=== PATIENT | male | born 1970 | race Two or more races ===

== ENCOUNTER 2020-04-30 23:52 | Emergency (ER) | payer SELFPAY ==
[~2020-04-30] VITALS: Ht 167.6 cm; Wt 77.1 kg
[2020-05-01] MEDS ORDERED: Tetanus/Diptheria/Pertussis IM ONE
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
[2020-05-01] MEDS ORDERED: Lidocaine 1% 10mg/ml/EPI 0.01mg/ml 30ml INJ ONE ×2 (00:59→01:00)
[2020-05-01 01:00] VITALS: BP 148/79
[2020-05-01] MEDS ORDERED: IBUPROFEN600 M1 ORAL (01:16)
--- NOTE | 2020-05-01 01:20 | Diagnostic Imaging Report ---
EXAM: CT Head Without Intravenous Contrast CLINICAL HISTORY: INJ TECHNIQUE: Axial computed tomography images of the head/brain without intravenous contrast. CTDI is 53.40 mGy and DLP is 1125.70 mGy-cm. One or more of the following dose reduction techniques were used: automated exposure control, adjustment of the mA and/or kV according to patient size, use of iterative reconstruction technique. COMPARISON: No relevant prior studies available. FINDINGS: Brain: No hemorrhage or mass effect. Ventricles: No hydrocephalus. Bones/joints: Unremarkable. Soft tissues: Unremarkable. Sinuses: Unremarkable. Mastoid air cells: Clear. IMPRESSION: No acute hemorrhage, hydrocephalus, or mass effect.
[2020-05-01] MEDS ORDERED: BACITRACIN ZIN1 EACH TOPIC (01:41)
[2020-05-01 02:21] VITALS: BP 142/89
== END 2020-05-01 02:21 | disposition home or self-care (01) ==
LOC: EDBD 23:52 → EMR 23:59
DX: S01.81XA Laceration without foreign body of other part of head, initial encounter (principal); S01.01XA Laceration without foreign body of scalp, initial encounter; S06.9X9A Unspecified intracranial injury with loss of consciousness of unspecified duration, initial encounter; Y08.89XA Assault by other specified means, initial encounter; Y92.9 Unspecified place or not applicable; R51 Headache; Z23 Encounter for immunization
CPT/HCPCS: 70450; 90471; 90715; 99284

== ENCOUNTER 2020-05-05 13:57 | Emergency (ER) | payer SELFPAY ==
[~2020-05-05] VITALS: Ht 170.2 cm; Wt 72.6 kg
[~2020-05-05 13:57] MED LIST: BACITRACIN ZIN1 EACH TOPIC; IBUPROFEN600 M1 ORAL
--- NOTE | 2020-05-05 14:37 | Emergency Room Report ---
History of Present Illness General Chief Complaint: Wound Recheck/Suture Removal Source: Patient Present Illness HPI 49-year-old male with no known significant past medical history here requesting suture removal. Patient sutures placed in forehead 4 days ago and charbel placed and around same time in the right side of scalp. Complains of minor headache when bending head down and is requesting more time off from work. Denies any fever and chills, pus drainage. Sutures are not ready to be taken out yet as the wound still healing. Patient is up-to-date with tetanus shot. 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 Patient History Past Medical History: see triage record Past Surgical History: none Pertinent Family History: none Reviewed Nursing Documentation: PMH: Agreed; PSxH: Agreed Nursing Documentation-PMH Past Medical History: No Stated History Review of Systems All Other Systems: negative except mentioned in HPI Physical Exam Vital Signs Date Time Temp Pulse Resp B/P (MAP) Pulse Ox O2 Delivery O2 Flow Rate FiO2 05/05/20 14:24 97.9 74 17 127/83 (98) 99 Room Air Sp02 EP Interpretation: reviewed, normal General Appearance: well appearing, no apparent distress Head: normocephalic, atraumatic Eyes: bilateral eye normal inspection ENT: hearing grossly normal, normal voice Neck: full range of motion, supple Respiratory: lungs clear Cardiovascular #1: normal inspection Gastrointestinal: normal inspection Musculoskeletal: gait/station normal Neurologic: alert, normal gait Psychiatric: mood/affect normal Skin: other - Healing lack with sutures in place no pus drainage on 4 with stable right scalp Lymphatic: no adenopathy Procedures Additional Procedure Procedure Narrative 2 charbel removed from right frontal lobe without any complication Medical Decision Making PA Attestation ALL Diagnosis and treatment plan reviewed and discussed with my supervising physician Dr. Mason Diagnostic Impression: Primary Impression: Suture check Additional Impression: Removal of staple ER Course 49-year-old male with no known significant past medical history here requesting suture removal. Patient sutures placed in forehead 4 days ago and charbel dionicio blanca and around same time in the right side of scalp. Complains of minor headache when bending head down and is requesting more time off from work. Denies any fever and chills, pus drainage. Sutures are not ready to be taken out yet as the wound still healing. Patient is up-to-date with tetanus shot. Ddx considered but are not limited to : Superficial laceration, deep laceration, tendon involvement with laceration, laceration with foreign body Vital signs: are WNL, pt. is afebrile H&PE are most consistent with: Removal of charbel, suture check ORDERS: Mupirocin ointment ED INTERVENTIONS: 2 charbel removed from scalp without complication. Sutures were left in forehead as it is too simple to be taken off patient to return in 3 to 4 days. DISCHARGE: At this time pt. is stable for d/c to home. Will provide printed patient care instructions, and any necessary prescriptions. Care plan and follow up instructions have been discussed with the patient prior to discharge. Last Vital Signs Date Time Temp Pulse Resp B/P (MAP) Pulse Ox O2 Delivery O2 Flow Rate FiO2 05/05/20 14:24 97.9 74 17 127/83 (98) 99 Room Air Disposition: HOME, SELF-CARE Condition: Stable Scripts Mupirocin* (MUPIROCIN*) 22 Gm Oint...g. 1 APPLIC TOPIC THREE TIMES A DAY, #22 GM Prov: Carla Edwards 05/05/20 Patient Instructions: Wound Check Additional Instructions: Sutures are not ready to be coming out yet as you got them placed in 4 days ago return to the emergency room 3 to 4 days for removal of the sutures in your forehead. Charbel on your scalp were removed successfully without any complications. If worsening symptoms return to the emergency room Carla Edwards May 05, 2020 14:37
[2020-05-05] MEDS ORDERED: MUPIROCIN22 GM TOPIC (14:40)
--- NOTE | 2020-05-05 14:50 | NUR ---
ED Nurse Note:sutures were removed by ER PA Pt cleared by health care Provider for discharge. DC instructions/prescription was given and explained to pt and verbalized understanding of teachings. All medical deviecs such as ID band removed. Pt is AAO x4, ambulatory and left with all personal belongings.
[2020-05-05 19:42] VITALS: BP 127/83
== END 2020-05-05 14:50 | disposition home or self-care (01) ==
LOC: EMR 14:35
DX: Z48.02 Encounter for removal of sutures (principal); R51 Headache
CPT/HCPCS: 99281

== ENCOUNTER → 2020-05-09 | Emergency (ER) | payer SELFPAY ==
[~2020-05-09] VITALS: Ht 172.7 cm; Wt 70.3 kg
[~2020-05-09] MED LIST changes: +MUPIROCIN22 GM TOPIC
[2020-05-09 15:27] VITALS: BP 126/82
--- NOTE | 2020-05-09 15:43 | Emergency Room Report ---
History of Present Illness General Chief Complaint: Wound Recheck/Suture Removal Source: Patient Present Illness HPI 49-year-old male with no symptom past medical history here requesting suture removal from forehead which were placed in [facility] about 10 days ago. 2 of the sutures have already been fallen off and patient currently had 4 sutures placed in. Laceration has been healed without any pus drainage. Denies any new injury. Denies any fever and chills, pain at the site of sutures. Allergies: Coded Allergies: No Known Allergies (Unverified , 04/30/20) COVID-19 Screening Contact w/high risk pt: No Experienced COVID-19 symptoms?: No COVID-19 Testing performed GYM ATTENDANT: No Patient History Past Medical History: see triage record Past Surgical History: none Pertinent Family History: none Immunizations: UTD Reviewed Nursing Documentation: PMH: Agreed; PSxH: Agreed Nursing Documentation-PMH Past Medical History: No Stated History Review of Systems All Other Systems: negative except mentioned in HPI Physical Exam Vital Signs Date Time Temp Pulse Resp B/P (MAP) Pulse Ox O2 Delivery O2 Flow Rate FiO2 05/09/20 15:17 98.1 78 18 135/86 (102) 97 Room Air Sp02 EP Interpretation: reviewed, normal General Appearance: no apparent distress, alert, GCS 15, non-toxic Head: normocephalic, atraumatic Eyes: bilateral eye normal inspection, bilateral eye PERRL ENT: hearing grossly normal, normal pharynx, no angioedema, normal voice Neck: full range of motion, supple/symm/no masses Respiratory: chest non-tender, lungs clear, normal breath sounds, speaking full sentences Cardiovascular #1: regular rate, rhythm, no edema Gastrointestinal: soft Rectal: deferred Musculoskeletal: back normal Neurologic: alert, motor strength/tone normal, oriented x3, sensory intact, responsive, speech normal Psychiatric: judgement/insight normal, memory normal, mood/affect normal, no suicidal/homicidal ideation Skin: other - Healed laceration forehead Lymphatic: no adenopathy Procedures Additional Procedure Procedure Narrative 4 sutures were removed without any complications Medical Decision Making PA Attestation ALL Diagnosis and treatment plan reviewed and discussed with my supervising physician Dr. Mason Diagnostic Impression: Primary Impression: Encounter for removal of sutures ER Course 49-year-old male with no symptom past medical history here requesting suture removal from forehead which were placed in [place] ER about 10 days ago. 2 of the sutures have already been fallen off and patient currently had 4 sutures placed in. Laceration has been healed without any pus drainage. Denies any new injury. Denies any fever and chills, pain at the site of sutures. Ddx considered but are not limited to : Superficial laceration, deep laceration, tendon involvement with laceration, laceration with foreign body Vital signs: are WNL, pt. is afebrile H&PE are most consistent with: Suture removal ORDERS: None ED INTERVENTIONS: 4 sutures were removed without complication DISCHARGE: At this time pt. is stable for d/c to home. Will provide printed patient care instructions, and any necessary prescriptions. Care plan and follow up instructions have been discussed with the patient prior to discharge. Patient to follow primary care provider, if worsening symptoms return to emergency room Last Vital Signs Date Time Temp Pulse Resp B/P (MAP) Pulse Ox O2 Delivery O2 Flow Rate FiO2 05/09/20 15:27 98.1 85 16 126/82 98 Room Air Disposition: HOME, SELF-CARE Condition: Stable Patient Instructions: Wound Check Carla Edwards May 09, 2020 15:43
[2020-05-09 15:49] VITALS: BP 137/85
== END | disposition home or self-care (01) ==
LOC: EMR 16:01
DX: Z48.02 Encounter for removal of sutures (principal); S01.81XD Laceration without foreign body of other part of head, subsequent encounter; X58.XXXD Exposure to other specified factors, subsequent encounter
CPT/HCPCS: 99281